=== PATIENT | male | born 1975 ===

== ENCOUNTER 2021-02-04 12:04 | Emergency (ER) | payer BC ==
[~2021-02-04] VITALS: Ht 167.6 cm; Wt 81.6 kg
[2021-02-04] MEDS ORDERED: TAPAZOLE10 MG (12:28)
[2021-02-04] MEDS ORDERED: KETO10TA2 PO (14:09)
[2021-02-04] MEDS ORDERED: AMOX-CLAV 875-1 EACH PO (14:09)
== END 2021-02-04 14:42 | disposition home or self-care (01) ==
LOC: ER 12:04
DX: S67.193A Crushing injury of left middle finger, initial encounter (principal); W23.0XXA Caught, crushed, jammed, or pinched between moving objects, initial encounter; Y93.89 Activity, other specified; Y92.098 Other place in other non-institutional residence as the place of occurrence of the external cause; Y99.8 Other external cause status